=== PATIENT | female | born 1960 | race Two or more races ===

== ENCOUNTER 2024-02-23 09:50 | Emergency (ER) | payer OTHER ==
[2024-02-23 10:00] VITALS: BP 152/66; PULSE 59; RESP 18; TEMP 97.5; BMI 25.7
[2024-02-23] MEDS ORDERED: ACETAMINOPHEN INJECTION 100 ML ONE (11:14)
[2024-02-23] MEDS ORDERED: KETOROLAC TROMETHAMINE 15 MG/ML VIAL ONE (11:14)
[2024-02-23] MEDS: SODIUM CHLORIDE 0.9% 500 ML INFUS.BAG IV ONE ×2 (11:42→15:25)
[2024-02-23] MEDS: KETOROLAC TROMETHAMINE 15 MG/ML VIAL IVPUSH ONE (11:43)
[2024-02-23] MEDS: ACETAMINOPHEN 1000 MG/100 ML BAG IVPB ONE (11:43)
[2024-02-23 11:59] LABS: BASO % 0.6 % (0-2.0); EOS % 1.8 % (0-4.5); HEMATOCRIT 41.6 % (32.4-45.2); HEMOGLOBIN 13.9 GM/dL (10.7-15.3); LYMPH % 25.2 % (8-40); MCH 28.3 pg (25.7-33.7); MCHC 33.4 g/dl (32.0-36.0); MEAN CELL VOLUME 84.8 fl (80-96); MEAN PLT VOLUME 8.2 fl (7.5-11.1); MONO % 6.1 % (3.8-10.2); NEUT % 66.3 % (42.8-82.8); PLATELET COUNT 209 10^3/uL (134-434); RDW 13.5 % (11.6-15.6); WHITE BLOOD COUNT 6.6 K/mm3 (4.0-10.0)
[2024-02-23 12:08] LABS: EPI CELLS 9 /uL (0-25.1); HYALINE CASTS 1 /uL (0-3.1); PH,URINE 5.5 (5.0-8.0); URINE APPEARANCE TURBID; URINE BACTERIA 35 /uL (0-1359); URINE BILIRUBIN NEGATIVE (NEGATIVE); URINE COLOR YELLOW; URINE GLUCOSE (UA) NEGATIVE (NEGATIVE); URINE KETONE 2+ (NEGATIVE); URINE LEUK ESTERASE NEGATIVE (NEGATIVE); URINE NITRITE NEGATIVE (NEGATIVE); URINE PROTEIN NEGATIVE (NEGATIVE); URINE RBC 22 /uL (0-23.9); URINE UROBILINOGEN 0.2 mg/dL (0.2-1.0); URINE WBC 11 /uL (0-25.8)
[2024-02-23 12:19] LABS: POTASSIUM 4.1 mmol/L (3.5-5.1)
[2024-02-23 12:21] LABS: ALBUMIN 3.7 g/dl (3.4-5.0); BLOOD UREA NITROGEN 24.4 mg/dL (7-18)
[2024-02-23 12:25] LABS: CREATININE 0.8 mg/dL (0.55-1.3)
[2024-02-23 12:26] LABS: BILIRUBIN,TOTAL 0.4 mg/dL (0.2-1)
[2024-02-23] MEDS ORDERED: ONDANSETRON 4 MG/2 ML VIAL ONE (13:42)
[2024-02-23] MEDS: ONDANSETRON 4 MG/2 ML VIAL IVPUSH ONE (13:58)
[2024-02-23] MEDS ORDERED: MECLIZINE HCL 25 MG TABLET (FP) ONE (15:20)
[2024-02-23] MEDS: MECLIZINE HCL 25 MG TABLET (FP) PO ONE (15:25)
== END 2024-02-23 15:28 | disposition home or self-care (01) ==
LOC: JER 09:50
PROC: 3E033NZ Introduction of Analgesics, Hypnotics, Sedatives into Peripheral Vein, Percutaneous Approach (ICD-10-PCS; principal; 2024-02-23)
PROC: 3E0333Z Introduction of Anti-inflammatory into Peripheral Vein, Percutaneous Approach (ICD-10-PCS; 2024-02-23)
PROC: 3E033GC Introduction of Other Therapeutic Substance into Peripheral Vein, Percutaneous Approach (ICD-10-PCS; 2024-02-23)
DX: R42 Dizziness and giddiness (principal); R10.9 Unspecified abdominal pain; R11.10 Vomiting, unspecified; Z20.822 Contact with and (suspected) exposure to COVID-19
CPT/HCPCS: 0241U-QW; 36415; 74176-TC; 80053; 81003; 83690; 83735; 85025; 87086; 93005; 93010; 99285-25; J0131

== ENCOUNTER 2024-03-02 02:26 | Emergency (ER) | payer OTHER ==
[2024-03-02 02:40] VITALS: RESP 18; TEMP 98.1; BMI 25.7
[2024-03-02] MEDS ORDERED: MAG HYDROX/AL HYDROX/SIMETH 30 ML UNIT-DOSE CUP ONE (02:54)
[2024-03-02] MEDS: POLYETHYLENE GLYCOL (HEALTHYLAX) 3350 17 GM PACKET PO SCH (02:56)
[2024-03-02] MEDS: MAGNESIUM HYDROX 2400MG/30ML ORAL SUSPENSION 30 ML CUP PO PRN (02:56)
[2024-03-02] MEDS ORDERED: POLYETHYLENE GLYCOL (HEALTHYLAX) 3350 17 GM PACKET ONE (03:37)
[2024-03-02] MEDS: POLYETHYLENE GLYCOL (HEALTHYLAX) 3350 17 GM PACKET PO ONE (03:47)
[2024-03-02 05:23] VITALS: BP 128/76; PULSE 80
== END 2024-03-02 05:24 | disposition home or self-care (01) ==
LOC: JER 02:26
DX: K59.00 Constipation, unspecified (principal); R10.2 Pelvic and perineal pain; M54.9 Dorsalgia, unspecified
CPT/HCPCS: 99283-25